=== PATIENT | male | born 1980 | race Caucasian/White ===

== ENCOUNTER → 2020-08-23 | Outpatient (CLI) | payer OTHER ==
[~2020-08-23] MED LIST: ASPI81TA45 PO; IBUP-1223 PO; MAGN400T36 PO; MULT-449 PO; POTA99TA24 PO
[2020-08-23 09:14] LABS: BASOPHILS % (AUTO) 1 % (0-1); EOSINOPHILS % (AUTO) 1 % (1-7); LYMPHOCYTES % (AUTO) 32 % (22-44); MEAN CORPUSCULAR HEMOGLOBIN 30.4 pg (27.5-34.5); MEAN CORPUSCULAR HGB CONC 34.4 g/dL (33.2-36.2); MONOCYTES % (AUTO) 6 % (2-9); NEUTROPHILS % (AUTO) 60 % (42-75); PLATELET COUNT 231 x10^3/uL (130-400); RED CELL DISTRIBUTION WIDTH 13.4 % (9.4-14.8)
[2020-08-23 09:24] LABS: ALBUMIN 3.7 g/dL (3.4-5.0); ANION GAP 8 mmol/L (5-15); CALCIUM 9.6 mg/dL (8.5-10.1); CHLORIDE 108 mmol/L (98-107)
[2020-08-23 09:27] LABS: ALANINE AMINOTRANSFERASE 34 U/L (12-78); ALKALINE PHOSPHATASE 50 U/L (45-117); BILIRUBIN,TOTAL 0.4 mg/dL (0.2-1.0); CREATININE 0.87 mg/dL (0.7-1.3); TOTAL PROTEIN 7.1 g/dL (6.4-8.2)
== END | disposition home or self-care (01) ==
LOC: STAR 08:03
PROVIDERS: ATTEND Colon & Rectal Surgery
DX: Z01.818 Encounter for other preprocedural examination (principal); R94.31 Abnormal electrocardiogram [ECG] [EKG]
CPT/HCPCS: 36415; 80053; 85025; 93005

== ENCOUNTER 2020-08-30 06:06 | Day surgery (SDC) | payer OTHER ==
[~2020-08-30] VITALS: Ht 185.4 cm; Wt 131.2 kg
[2020-08-30 06:44] VITALS: BP 134/77
[2020-08-30] MEDS ORDERED: CHLORHEXIDINE 15 ML UDC PO ONE (07:00)
[2020-08-30] MEDS ORDERED: LACTATED RINGERS 1,000 ML IV SCH (07:00)
[2020-08-30] MEDS ORDERED: ACETAMINOPHEN 325 MG TABLET PO PRN (07:30)
[2020-08-30] MEDS ORDERED: ONDANSETRON 2MG/ML, 2ML IVPush PRN (07:30)
[2020-08-30] MEDS ORDERED: EPHEDRINE 50 MG/ML, 1ML IVPush PRN (07:30)
[2020-08-30] MEDS ORDERED: PROMETHAZINE 25 MG/ML, 1ML IVPush PRN (07:30)
[2020-08-30] MEDS ORDERED: hydrALAzine 20 MG/ML, 1ML IV PRN (07:30)
[2020-08-30] MEDS ORDERED: LABETALOL 5MG/ML, 20ML IV PRN (07:30)
[2020-08-30] MEDS ORDERED: FENTANYL PF 100 MCG/2ML IV PRN (07:30)
[2020-08-30] MEDS ORDERED: PROPOFOL 10 MG/ML, 50ML ONE (07:55)
== END 2020-08-30 09:30 | disposition home or self-care (01) ==
LOC: OUT 06:06
PROVIDERS: ATTEND Colon & Rectal Surgery
DX: K57.32 Diverticulitis of large intestine without perforation or abscess without bleeding (principal); E66.01 Morbid (severe) obesity due to excess calories; Z20.822 Contact with and (suspected) exposure to COVID-19; Z79.899 Other long term (current) drug therapy
CPT/HCPCS: 45378; J2704; U0003; U0005

== ENCOUNTER 2020-08-31 08:06 | Inpatient (IN) | payer OTHER ==
[~2020-08-31] VITALS: Ht 185.4 cm; Wt 127.7 kg
[~2020-08-31 08:06] MED LIST changes: +PROPOFOL 0 ML ONE; +PROPOFOL 10 MG/ML, 20ML ONE; +PROPOFOL 50 ML ONE
[2020-08-31 09:23] VITALS: BP 155/76
[2020-08-31 09:30] VITALS: BP 155/76
[2020-08-31] MEDS ORDERED: LACTATED RINGERS 1,000 ML IV SCH (09:30)
[2020-08-31] MEDS ORDERED: CHLORHEXIDINE 15 ML UDC PO ONE (09:30)
[2020-08-31] MEDS ORDERED: MIDAZOLAM 1 MG/ML, 2ML ONE (09:39)
[2020-08-31] MEDS ORDERED: FENTANYL PF 250 MCG/5ML ONE ×3 (09:39→12:52)
[2020-08-31] MEDS ORDERED: FLUORESCEIN SODIUM 500 MG/5 ML ONE (10:17)
[2020-08-31] MEDS ORDERED: BUPIVACAINE/PF 0.5% ONE (10:17)
[2020-08-31] MEDS ORDERED: INDOCYANINE GREEN 25 MG VIAL ONE (10:17)
[2020-08-31] MEDS ORDERED: EPINEPHRINE 1 MG/ML, 1ML ONE (10:18)
[2020-08-31] MEDS ORDERED: LORazepam 2 MG/ML, 1ML IVPush PRN ×2 (10:30→17:00)
[2020-08-31] MEDS ORDERED: OXYcodone 5 MG/5 ML ORAL.SOL UDC PO PRN (10:30)
[2020-08-31] MEDS ORDERED: MEPERIDINE/PF 25MG/0.5ML IVPush PRN (10:30)
[2020-08-31] MEDS ORDERED: FENTANYL PF 100 MCG/2ML IV PRN (10:30)
[2020-08-31] MEDS ORDERED: METHOCARBAMOL 1,000 MG in DEXTROSE 5% 100 ML IV PRN (10:30)
[2020-08-31] MEDS ORDERED: HYDROmorphone 1 MG/ML, 1ML INJ IVPush PRN ×2 (10:30→17:00)
[2020-08-31] MEDS ORDERED: LABETALOL 5MG/ML, 20ML IV PRN (10:30)
[2020-08-31] MEDS ORDERED: ACETAMINOPHEN 325 MG TABLET PO PRN (10:30)
[2020-08-31] MEDS ORDERED: HYDROmorphone 1 MG/ML, 1ML INJ ONE (12:38)
[2020-08-31] MEDS ORDERED: PROPOFOL 10 MG/ML, 20ML ONE (12:52)
[2020-08-31] MEDS ORDERED: ROCURONIUM 10MG/ML,5ML ONE (12:52)
[2020-08-31] MEDS ORDERED: DEXAMETHASONE 4 MG/ML, 1ML ONE (12:52)
[2020-08-31] MEDS ORDERED: ONDANSETRON 2MG/ML, 2ML ONE (12:52)
[2020-08-31] MEDS ORDERED: NEOSTIGMINE 1 MG/ML, 10ML ONE (12:52)
[2020-08-31] MEDS ORDERED: GLYCOPYRROLATE 0.2MG/1ML, 5ML ONE (12:52)
[2020-08-31] MEDS ORDERED: CEFAZOLIN 1,000 MG ONE (12:52)
[2020-08-31] MEDS ORDERED: PROMETHAZINE 25 MG/ML, 1ML ONE (14:19)
[2020-08-31] MEDS: PROMETHAZINE 25 MG/ML, 1ML IVPush PRN ×2 (14:21→14:53)
[2020-08-31 14:25] VITALS: BP 180/77
[2020-08-31] MEDS ORDERED: LIDOCAINE-MPF 2% ,5ML ONE (15:01)
[2020-08-31] MEDS ORDERED: MEPERIDINE/PF 25MG/ML,1ML ONE (15:05)
[2020-08-31] MEDS ORDERED: HALOPERIDOL 5 MG/ML IVPush PRN (17:00)
[2020-08-31] MEDS ORDERED: ONDANSETRON 2MG/ML, 2ML IV PRN (17:00)
[2020-08-31] MEDS ORDERED: KETOROLAC 30 MG/1 ML IVPush SCH (17:00)
[2020-08-31] MEDS ORDERED: DIPHENHYDRAMINE 50 MG/ML, 1ML IVPush PRN (17:00)
[2020-08-31] MEDS ORDERED: DIPHENHYDRAMINE 25 MG CAPSULE PO PRN (17:00)
[2020-08-31] MEDS ORDERED: ENOXAPARIN 40 MG/0.4 ML SQ SCH (17:00)
[2020-08-31] MEDS ORDERED: DEXAMETHASONE 4 MG/ML, 1ML IVPush PRN (17:00)
[2020-08-31] MEDS ORDERED: SCOPOLAMINE PATCH, 1.5MG PATCH.TD72 TD PRN (17:00)
[2020-08-31] MEDS ORDERED: TRAZODONE 50MG TABLET PO PRN (17:00)
[2020-08-31] MEDS: LACTATED RINGERS 1,000 ML IV SCH (17:10)
[2020-08-31] MEDS: ACETAMINOPHEN 500 MG TABLET PO SCH ×2 (17:15→22:52)
[2020-08-31] MEDS: OXYcodone IR 5MG TABLET PO PRN ×3 (18:59→22:52)
[2020-08-31 19:40] VITALS: BP 159/89
[2020-08-31] MEDS: LORazepam 1MG TABLET PO PRN ×2 (19:43→20:54)
[2020-08-31 20:26] VITALS: BP 165/95
[2020-09-01 00:25] VITALS: BP 177/90
[2020-09-01 03:32] LABS: ANION GAP 7 mmol/L (5-15); CALCIUM 8.9 mg/dL (8.5-10.1); CHLORIDE 106 mmol/L (98-107); CREATININE 0.89 mg/dL (0.7-1.3)
[2020-09-01 03:40] LABS: BASOPHILS % (AUTO) 1 % (0-1); EOSINOPHILS % (AUTO) 0 % (1-7); LYMPHOCYTES % (AUTO) 5 % (22-44); MEAN CORPUSCULAR HEMOGLOBIN 30.6 pg (27.5-34.5); MEAN CORPUSCULAR HGB CONC 34.6 g/dL (33.2-36.2); MEAN PLATELET VOLUME 8.2 fL (7.4-10.4); MONOCYTES % (AUTO) 4 % (2-9); NEUTROPHILS % (AUTO) 91 % (42-75); PLATELET COUNT 260 x10^3/uL (130-400); RED BLOOD COUNT 5.18 x10^6/uL (4.38-5.82); RED CELL DISTRIBUTION WIDTH 13.7 % (9.4-14.8)
[2020-09-01 04:43] VITALS: BP_SYST 176; BP_SYST 177; BP_DIAS 103; BP_DIAS 106
[2020-09-01] MEDS: ACETAMINOPHEN 500 MG TABLET PO SCH ×4 (05:12→22:06)
[2020-09-01] MEDS: OXYcodone IR 5MG TABLET PO PRN ×3 (05:13→22:06)
[2020-09-01] MEDS: CALCIUM CARBONATE 500 MG TAB.CHEW PO PRN (05:17)
[2020-09-01 05:21] VITALS: BP 160/90
[2020-09-01 07:00] VITALS: BP 147/73
[2020-09-01] MEDS ORDERED: ENOXAPARIN 40 MG/0.4 ML SQ SCH (09:00)
[2020-09-01] MEDS: LACTATED RINGERS 1,000 ML IV SCH (13:00)
[2020-09-01 14:30] VITALS: BP 154/95
[2020-09-01 19:08] VITALS: BP 168/94
[2020-09-02] MEDS: OXYcodone IR 5MG TABLET PO PRN ×4 (01:48→14:07)
[2020-09-02 02:46] VITALS: BP 149/93
[2020-09-02 03:41] LABS: BASOPHILS % (AUTO) 1 % (0-1); EOSINOPHILS % (AUTO) 0 % (1-7); LYMPHOCYTES % (AUTO) 17 % (22-44); MEAN CORPUSCULAR HEMOGLOBIN 30.5 pg (27.5-34.5); MEAN CORPUSCULAR HGB CONC 34.6 g/dL (33.2-36.2); MEAN PLATELET VOLUME 8.2 fL (7.4-10.4); MONOCYTES % (AUTO) 6 % (2-9); NEUTROPHILS % (AUTO) 76 % (42-75); PLATELET COUNT 237 x10^3/uL (130-400); RED BLOOD COUNT 5.03 x10^6/uL (4.38-5.82); RED CELL DISTRIBUTION WIDTH 13.6 % (9.4-14.8)
[2020-09-02 03:48] LABS: ANION GAP 6 mmol/L (5-15); CALCIUM 8.9 mg/dL (8.5-10.1); CHLORIDE 104 mmol/L (98-107); CREATININE 0.83 mg/dL (0.7-1.3)
[2020-09-02] MEDS: ACETAMINOPHEN 500 MG TABLET PO SCH ×2 (05:54→10:42)
[2020-09-02 07:08] VITALS: BP 131/75
[2020-09-02] MEDS: LACTATED RINGERS 1,000 ML IV SCH (09:00)
[2020-09-02] MEDS: CALCIUM CARBONATE 500 MG TAB.CHEW PO PRN (09:04)
[2020-09-02 13:05] VITALS: BP 136/81
== END 2020-09-02 14:50 | disposition home or self-care (01) | DRG 331 ==
LOC: ORIP 08:30 → 4NE 15:29 → ORIP 22:28 → 4NE 22:30
PROVIDERS: ADMIT Colon & Rectal Surgery; ATTEND Colon & Rectal Surgery
PROC: 0DTN8ZZ Resection of Sigmoid Colon, Via Natural or Artificial Opening Endoscopic (ICD-10-PCS; principal; 2020-08-31 11:00)
PROC: 8E0W4CZ Robotic Assisted Procedure of Trunk Region, Percutaneous Endoscopic Approach (ICD-10-PCS; 2020-08-31 11:00)
DX: K57.92 Diverticulitis of intestine, part unspecified, without perforation or abscess without bleeding (principal)
CPT/HCPCS: 36415; J3490; S0020; 80048; 83735; 85025; 86850; 86900; 88307; G0378; J0171; J0690; J1100; J1170; J1885; J2175; J2250; J2405; J2550; J2704; J2710; J3010; J7120